=== PATIENT | female | born 1985 | race Caucasian/White ===

== ENCOUNTER 2017-01-29 07:26 | Emergency (ER) | payer BC ==
[~2017-01-29] VITALS: Ht 152.4 cm; Wt 53.5 kg
[2017-01-29 07:30] VITALS: BP 98/62
== END 2017-01-29 07:40 | disposition home or self-care (01) ==
LOC: ER 07:28
DX: S00.86XA Insect bite (nonvenomous) of other part of head, initial encounter (principal); Z90.89 Acquired absence of other organs; Z91.048 Other nonmedicinal substance allergy status; W57.XXXA Bitten or stung by nonvenomous insect and other nonvenomous arthropods, initial encounter; Y93.89 Activity, other specified; Y92.89 Other specified places as the place of occurrence of the external cause; Y99.8 Other external cause status
CPT/HCPCS: 99281; A4606; Z7610; Z7502

== ENCOUNTER 2017-05-04 12:01 | Emergency (ER) | payer BC ==
[~2017-05-04] VITALS: Ht 152.4 cm; Wt 53.5 kg
[2017-05-04 12:10] VITALS: BP 144/63
--- NOTE | 2017-05-04 12:33 | NUR ---
RADIOLOGY AT BEDSIDE FOR LFA XRAY.
== END 2017-05-04 14:04 | disposition home or self-care (01) ==
LOC: ER 12:06
DX: S66.912A Strain of unspecified muscle, fascia and tendon at wrist and hand level, left hand, initial encounter (principal); Z88.8 Allergy status to other drugs, medicaments and biological substances; X58.XXXA Exposure to other specified factors, initial encounter; Y93.89 Activity, other specified; Y92.89 Other specified places as the place of occurrence of the external cause; Y99.8 Other external cause status
CPT/HCPCS: 73090-TC; A4606; Z7610

== ENCOUNTER → 2017-12-22 | Emergency (ER) | payer BC, OTHER ==
[~2017-12-22] VITALS: Ht 152.4 cm; Wt 53.5 kg
[~2017-12-22] MED LIST: KETOROLAC TROMETHAMINE 15 MG/ML VIAL ONE
[2017-12-22 15:00] LABS: BASOPHILS % (AUTO) 0.5 % (0.0-2.0); EOSINOPHILS # (AUTO) 0.1 /CMM (0.0-0.7); EOSINOPHILS % (AUTO) 0.6 % (0.0-6.0); HEMATOCRIT 39 % (33-45); HEMOGLOBIN 13.4 g/dL (11.5-14.8); LYMPHOCYTES # (AUTO) 2.1 /CMM (0.8-4.8); MEAN CORPUSCULAR HEMOGLOBIN 29 PG (26.0-33.0); MEAN CORPUSCULAR HGB CONC 34 g/dl (31.0-36.0); MEAN CORPUSCULAR VOLUME 84 fL (82-100); MONOCYTES # (AUTO) 0.3 /CMM (0.1-1.30); MONOCYTES % (AUTO) 4.1 % (2.0-12.0); NEUTROPHILS % (AUTO) 69.8 % (43.0-81.0); PLATELET COUNT (AUTO) 301 /CMM (150-450); RDW COEFFICIENT OF VARIATION 12.8 (11.5-15.0); RED BLOOD CELL COUNT(AUTO) 4.64 MIL/uL (4.0-5.2); WHITE BLOOD COUNT (AUTO) 8.5 K/uL (4.3-11.0)
--- NOTE | 2017-12-22 15:00 | NUR ---
PT REC'D TO ER C/O PAIN PELIV removed. Catheter intact and site benign. Pressure and 4x4 applied to site. No bleeding noted.Patient discharged to home in stable condition. Written and verbal after care instructions given. Patient verbalizes understanding of instruction.
[2017-12-22 15:02] LABS: APPEARANCE,URINE Clear (CLEAR); BILIRUBIN,URINE Negative (NEGATIVE); BLOOD, URINE Trace-intact Ery/uL (NEGATIVE); COLOR,URINE Yellow (YELLOW); KETONES,URINE Negative (NEGATIVE); LEUKOCYTE ESTERASE ,URINE Negative (NEGATIVE); NITRITE, URINE Negative (NEGATIVE); PROTEIN,URINE Negative (NEGATIVE); UGLUCOSE Negative (NEGATIVE); UROBILINOGEN,URINE 0.2 EU/dL (0.2)
[2017-12-22] MEDS: IV NS 0.9% 1,000 ML BAG IV ONE (15:04)
[2017-12-22] MEDS: KETOROLAC TROMETHAMINE INJ 30 MG/ML VIAL IV ONE (15:04)
--- NOTE | 2017-12-22 15:05 | NUR ---
PT REC'D TO ER C/O PELVIC PAIN FOR ONE DAY PERIOD ENDED 12/18 HX CYST OVARIAN . IV STARTED 20G LEFT AC LABS AND UA SENT TO LAB 07/10 PAIN [id number] MG IVP GIVEN S BOLUS PER MD ORDER
--- NOTE | 2017-12-22 15:07 | NUR ---
ULTRASOND AT BEDSIDE
[2017-12-22 15:08] LABS: CALCIUM, SERUM 9.4 mg/dL (8.5-10.1); CREATININE 0.5 mg/dL (0.6-1.3); POTASSIUM 3.9 mmol/L (3.5-5.1)
[2017-12-22 15:11] LABS: BACTERIA,URINE Rare /HPF (None Seen); SQUAMOUS EPITHELIAL CELL,UR Few /HPF (None Seen); WBC,URINE NONE SEEN /HPF (0-3)
[2017-12-22 15:38] VITALS: BP 119/73
== END | disposition home or self-care (01) ==
LOC: ER 19:10
DX: R10.2 Pelvic and perineal pain (principal); N83.209 Unspecified ovarian cyst, unspecified side; Z88.8 Allergy status to other drugs, medicaments and biological substances
CPT/HCPCS: 36415; 76856; 80048; 81001; 84703; 85025; 96361; 96374; 99285; J1885; Z7610; 81000-TC

== ENCOUNTER 2018-01-01 15:38 | Emergency (ER) | payer BC, MEDICAID, OTHER ==
[~2018-01-01] VITALS: Ht 152.4 cm; Wt 53.5 kg
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
--- NOTE | 2018-01-01 16:00 | NUR ---
MD OLSON AT BEDSIDE
[2018-01-01 16:25] LABS: BASOPHILS # (AUTO) 0.1 /CMM (0.0-0.2); BASOPHILS % (AUTO) 0.5 % (0.0-2.0); EOSINOPHILS % (AUTO) 0.2 % (0.0-6.0); HEMATOCRIT 40 % (33-45); HEMOGLOBIN 13.9 g/dL (11.5-14.8); LYMPHOCYTES # (AUTO) 1.9 /CMM (0.8-4.8); LYMPHOCYTES % (AUTO) 16.4 % (20.0-44.0); MEAN CORPUSCULAR HGB CONC 35 g/dl (31.0-36.0); MEAN CORPUSCULAR VOLUME 83 fL (82-100); MONOCYTES # (AUTO) 0.4 /CMM (0.1-1.30); MONOCYTES % (AUTO) 3.6 % (2.0-12.0); NEUTROPHILS # (AUTO) 9.1 /CMM (1.8-8.9); NEUTROPHILS % (AUTO) 79.3 % (43.0-81.0); PLATELET COUNT (AUTO) 316 /CMM (150-450); RDW COEFFICIENT OF VARIATION 12.9 (11.5-15.0); RED BLOOD CELL COUNT(AUTO) 4.78 MIL/uL (4.0-5.2); WHITE BLOOD COUNT (AUTO) 11.4 K/uL (4.3-11.0)
[2018-01-01 16:31] LABS: CALCIUM, SERUM 9.4 mg/dL (8.5-10.1); CARBON DIOXIDE 30 mmol/L (21-32); CHLORIDE 102 mmol/L (98-107); CREATININE 0.5 mg/dL (0.6-1.3); GLUCOSE 91 mg/dL (74-106); POTASSIUM 3.5 mmol/L (3.5-5.1); SODIUM SERUM 138 mmol/L (136-145); UREA NITROGEN, BLOOD 6 mg/dL (7-18)
[2018-01-01 16:35] LABS: INR 0.92 (0.85-1.15)
[2018-01-01 16:40] LABS: TROPONIN I < 0.017 ng/mL (0.00-0.056)
[2018-01-01 18:00] VITALS: BP 112/80
--- NOTE | 2018-01-01 18:00 | NUR ---
Crutches dispensed. Pt instructed on proper use of crutches. Patient able to demonstrate correct use of crutches.Patient discharged to home in stable condition. Written and verbal after care instructions given. Patient verbalizes understanding of instruction.
== END 2018-01-01 18:01 | disposition home or self-care (01) ==
LOC: ER 15:39
DX: S80.11XA Contusion of right lower leg, initial encounter (principal); R55 Syncope and collapse; S50.812A Abrasion of left forearm, initial encounter; N83.209 Unspecified ovarian cyst, unspecified side; Z88.8 Allergy status to other drugs, medicaments and biological substances; W11.XXXA Fall on and from ladder, initial encounter; Y93.89 Activity, other specified; Y92.000 Kitchen of unspecified non-institutional (private) residence as the place of occurrence of the external cause; Y99.8 Other external cause status
CPT/HCPCS: 36415; 70450-TC; 73590-TC; 80048-TC; 84484-TC; 85025-TC; 85730-TC; A4606; Z7610

== ENCOUNTER 2018-04-29 10:21 | Emergency (ER) | payer BC ==
[~2018-04-29] VITALS: Ht 152.4 cm; Wt 53.5 kg
[2018-04-29 10:21] VITALS: BP 110/78
== END 2018-04-29 11:08 | disposition home or self-care (01) ==
LOC: ER 10:22
DX: B08.8 Other specified viral infections characterized by skin and mucous membrane lesions (principal); Z98.890 Other specified postprocedural states; Z88.8 Allergy status to other drugs, medicaments and biological substances; Z60.2 Problems related to living alone
CPT/HCPCS: 99281; A4606; Z7610; Z7502

== ENCOUNTER 2021-12-20 08:12 | Emergency (ER) | payer BC, MEDICAID ==
[~2021-12-20] VITALS: Ht 152.4 cm; Wt 55.3 kg
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
[2021-12-20] MEDS ORDERED: HYDR30CR79 TP (08:52)
[2021-12-20] MEDS ORDERED: POLY17PO4 PO (08:52)
[2021-12-20 09:24] LABS: OCCULT BLOOD STOOL NEGATIVE (NEGATIVE)
--- NOTE | 2021-12-20 09:25 | NUR ---
Emily canales in [facility] - 12/20/21 at 0932 by [facility] ROOM [id number]
--- NOTE | 2021-12-20 09:32 | NUR ---
Patient discharged to home in stable condition. Written and verbal after care instructions given. Patient verbalizes understanding of instruction.
[2021-12-20 09:33] VITALS: BP 107/74
== END 2021-12-20 09:33 | disposition home or self-care (01) ==
LOC: ER 08:18
DX: K64.4 Residual hemorrhoidal skin tags (principal); K62.5 Hemorrhage of anus and rectum; K59.00 Constipation, unspecified; Z98.890 Other specified postprocedural states; Z88.8 Allergy status to other drugs, medicaments and biological substances; Z60.2 Problems related to living alone
CPT/HCPCS: 82272-TC

== ENCOUNTER 2023-06-17 03:39 | Emergency (ER) | payer MEDICAID, OTHER ==
[~2023-06-17] VITALS: Ht 160 cm; Wt 54.4 kg
[~2023-06-17 03:39] MED LIST changes: +HYDR30CR79 TP; -KETOROLAC TROMETHAMINE 15 MG/ML VIAL ONE; +POLY17PO4 PO
[2023-06-17 04:33] VITALS: BP 124/77; TEMP 98; O2SAT 98
[2023-06-17] MEDS ORDERED: LIDOCAINE VISCOUS 2% UD 15 ML UDC ONE (04:41)
[2023-06-17] MEDS ORDERED: IBUPROFEN 600 MG TABLET ONE (04:41)
[2023-06-17] MEDS ORDERED: FAMOTIDINE (20 MG) 20 MG TABLET ONE (04:41)
[2023-06-17] MEDS ORDERED: ONDANSETRON 4 MG TAB.RAPDIS ONE (04:42)
[2023-06-17] MEDS ORDERED: IBUPROFEN 600 MG TABLET PO ONE (05:00)
[2023-06-17] MEDS ORDERED: ONDANSETRON 4 MG TAB.RAPDIS SL ONE (05:00)
[2023-06-17] MEDS ORDERED: LIDOCAINE VISCOUS 2% UD 15 ML UDC MM ONE (05:00)
[2023-06-17] MEDS ORDERED: FAMOTIDINE (20 MG) 20 MG TABLET PO ONE (05:00)
[2023-06-17 05:09] LABS: APPEARANCE,URINE SLIGHTLY CLOUDY (CLEAR); BILIRUBIN,URINE NEGATIVE (NEGATIVE); BLOOD, URINE TRACE-INTA Ery/uL (NEGATIVE); COLOR,URINE YELLOW (YELLOW); KETONES,URINE 2+ mg/dL (NEGATIVE); LEUKOCYTE ESTERASE ,URINE NEGATIVE (NEGATIVE); NITRITE, URINE NEGATIVE (NEGATIVE); PH,URINE 6.5 (5.0-8.0); PREGNANCY TEST URINE QUAL NEGATIVE (NEGATIVE); PROTEIN,URINE NEGATIVE (NEGATIVE); UGLUCOSE NEGATIVE (NEGATIVE); UROBILINOGEN,URINE 0.2 EU/dL (0.2)
[2023-06-17 05:10] LABS: ADD URINE CULTURE NO; BACTERIA,URINE Rare /HPF (None Seen); RBC,URINE 0-2 /HPF (0-2); SQUAMOUS EPITHELIAL CELL,UR Rare /HPF (None Seen); WBC,URINE 0-2 /HPF (0-3)
[2023-06-17] MEDS ORDERED: CIPR500T5 PO (05:33)
[2023-06-17] MEDS ORDERED: IBUP-1955 PO (05:33)
[2023-06-17] MEDS ORDERED: FAMO20TA8 PO (05:33)
[2023-06-17] MEDS ORDERED: ONDA4TAB5 PO (05:33)
== END 2023-06-17 05:38 | disposition home or self-care (01) ==
LOC: ER 03:44
DX: K52.9 Noninfective gastroenteritis and colitis, unspecified (principal); Z79.899 Other long term (current) drug therapy; Z98.890 Other specified postprocedural states; Z60.2 Problems related to living alone; Z88.1 Allergy status to other antibiotic agents
CPT/HCPCS: 99284; 84703; 81001; Q0162

== ENCOUNTER 2024-08-08 08:47 | Emergency (ER) | payer OTHER ==
[~2024-08-08] VITALS: Ht 152.4 cm; Wt 51.7 kg
[~2024-08-08 08:47] MED LIST changes: +CIPR500T5 PO; +FAMO20TA8 PO; +IBUP-1955 PO; +ONDA4TAB5 PO
[2024-08-08 09:16] VITALS: TEMP 98.4
[2024-08-08 10:01] LABS: BASOPHILS % (AUTO) 0.5 % (0.0-2.0); EOSINOPHILS % (AUTO) 0.1 % (0.0-6.0); HEMATOCRIT 40 % (33-45); HEMOGLOBIN 13.1 g/dL (11.5-14.8); LYMPHOCYTES # (AUTO) 1.4 K/uL (0.8-4.8); LYMPHOCYTES % (AUTO) 17.1 % (20.0-44.0); MEAN CORPUSCULAR HEMOGLOBIN 27 PG (26.0-33.0); MEAN CORPUSCULAR HGB CONC 33 g/dl (31.0-36.0); MEAN CORPUSCULAR VOLUME 83 fL (82-100); MONOCYTES # (AUTO) 0.3 K/uL (0.1-1.30); MONOCYTES % (AUTO) 3.5 % (2.0-12.0); NEUTROPHILS # (AUTO) 6.4 K/uL (1.8-8.9); NEUTROPHILS % (AUTO) 78.8 % (43.0-81.0); PLATELET COUNT (AUTO) 354 K/uL (150-450); RED BLOOD CELL COUNT(AUTO) 4.84 MIL/uL (4.0-5.2); RED CELL DISTRIBUTION WIDTH 16.5 % (11.5-15.0); WHITE BLOOD COUNT (AUTO) 8.1 K/uL (4.3-11.0)
[2024-08-08 10:09] LABS: APPEARANCE,URINE CLEAR (CLEAR); BILIRUBIN,URINE NEGATIVE (NEGATIVE); BLOOD, URINE NEGATIVE Ery/uL (NEGATIVE); COLOR,URINE YELLOW (YELLOW); KETONES,URINE NEGATIVE (NEGATIVE); LEUKOCYTE ESTERASE ,URINE NEGATIVE (NEGATIVE); NITRITE, URINE NEGATIVE (NEGATIVE); PH,URINE 6.5 (5.0-8.0); PROTEIN,URINE NEGATIVE (NEGATIVE); UGLUCOSE NEGATIVE (NEGATIVE); UROBILINOGEN,URINE 0.2 EU/dL (0.2)
[2024-08-08 10:12] LABS: PREGNANCY TEST URINE QUAL NEGATIVE (NEGATIVE)
[2024-08-08 10:26] LABS: CALCIUM, SERUM 9.7 mg/dL (8.5-10.1); CREATININE 0.5 mg/dL (0.6-1.3); POTASSIUM 3.7 mmol/L (3.5-5.1)
[2024-08-08 10:31] LABS: ALBUMIN 4.3 g/dL (3.4-5.0); BILIRUBIN,DIRECT 0.1 mg/dL (0.0-0.2); BILIRUBIN,TOTAL 0.5 mg/dL (0.2-1.0); TOTAL PROTEIN, SERUM 8.2 g/dL (6.4-8.2)
[2024-08-08 10:57] VITALS: BP 122/85; O2SAT 100
== END 2024-08-08 10:57 | disposition home or self-care (01) ==
LOC: ER 09:00
DX: N83.202 Unspecified ovarian cyst, left side (principal); R10.2 Pelvic and perineal pain; Z90.49 Acquired absence of other specified parts of digestive tract
CPT/HCPCS: 36415; 76856-TC; 80048-TC; 80076-TC; 83690-TC; 84703-TC; 85025-TC